=== PATIENT | female | born 2000 | race African-American/Black ===

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

== ENCOUNTER 2022-02-17 17:11 | Emergency (ER) | payer OTHER ==
[2022-02-17 17:41] VITALS: BP 104/74; PULSE 88; RESP 18; TEMP 97.8; BMI 42.9
== END 2022-02-17 18:45 | disposition home or self-care (01) ==
LOC: JERFT 17:11 → JER 17:11 → JERFT 18:45
DX: J02.9 Acute pharyngitis, unspecified (principal)
CPT/HCPCS: 87651; 99283-25